=== PATIENT | male | born 1960 | race Caucasian/White ===

== ENCOUNTER 2017-07-16 16:18 | Inpatient (IN) | payer BC ==
[2017-07-16 17:09] LABS: ADD MAN DIFF? NO
[2017-07-16 17:11] LABS: WHITE BLOOD COUNT 11.8 10^3/ul (4.8-10.8)
[2017-07-16 17:11] LABS: BASOPHILS % 0.3 % (0.0-2.0); EOSINOPHILS # 0.1 10^3/ul (0.0-0.5); EOSINOPHILS % 0.7 % (0.0-7.0); HEMATOCRIT 45.4 % (42.0-52.0); HEMOGLOBIN 15.4 g/dl (14.0-18.0); LYMPHOCYTES # 1.5 10^3/ul (0.8-2.9); LYMPHOCYTES % 12.3 % (15.0-51.0); MEAN CORPUSCULAR HEMOGLOBIN 30.1 pg (29.0-33.0); MEAN CORPUSCULAR HGB CONC 33.9 g/dl (32.0-37.0); MEAN CORPUSCULAR VOLUME 88.7 fl (82.0-101.0); MEAN PLATELET VOLUME 10.2 fl (7.4-10.4); MONOCYTE # 0.6 10^3/ul (0.3-0.9); MONOCYTES % 5.1 % (0.0-11.0); NEUTROPHIL # 9.6 10^3/ul (1.6-7.5); NEUTROPHILS % 81.1 % (39.0-77.0); PLATELET COUNT 211 10^3/UL (140-415); RED BLOOD COUNT 5.12 10^6/ul (4.70-6.10); RED CELL DISTRIBUTION WIDTH 13.5 % (11.5-14.5)
[2017-07-16 17:34] LABS: ALANINE AMINOTRANSFERASE 27 IU/L (13-69); ALBUMIN 4.5 g/dl (3.3-4.9); ALBUMIN/GLOBULIN RATIO 1.66; ALKALINE PHOSPHATASE 50 IU/L (42-121); ANION GAP 21 (8-16); ASPARTATE AMINO TRANSFERASE 22 IU/L (15-46); BILIRUBIN,INDIRECT 1.9 mg/dl (0-1.1); BILIRUBIN,TOTAL 1.9 mg/dl (0.2-1.3); BLOOD UREA NITROGEN 27 mg/dl (7-20); CALCIUM 9.5 mg/dl (8.4-10.2); CARBON DIOXIDE 25 mmol/L (21-31); CHLORIDE 102 mmol/L (97-110); CREATININE 1.21 mg/dl (0.61-1.24); GLUCOSE 154 mg/dl (70-220); LIPASE 78 U/L (23-300); POTASSIUM 4.9 mmol/L (3.5-5.1); SODIUM 143 mmol/L (135-144); TOTAL PROTEIN 7.2 g/dl (6.1-8.1)
[2017-07-16 17:48] LABS: B-TYPE NATRIURETIC PEPTIDE 3540 PG/ML (0-125); TROPONIN-I 0.017 ng/ml (0.00-0.12)
[2017-07-16 18:30] LABS: INR 1.17; PARTIAL THROMBOPLASTIN TIME 26.3 Sec (25.0-35.0); PROTIME 15.1 Sec (11.9-14.9); PT RATIO 1.2
[2017-07-16] MEDS: FUROSEMIDE 40 MG INJ IV (18:41)
[2017-07-16] MEDS: SOTALOL 80 MG TAB PO (20:58)
[2017-07-16 21:33] LABS: ADD UMIC NO; UR ASCORBIC ACID 40 mg/dL (NEGATIVE); UR BILIRUBIN (Dip) NEGATIVE (NEGATIVE); UR BLOOD (Dip) NEGATIVE (NEGATIVE); UR CLARITY SLIGHTLY CLOUDY (CLEAR); UR COLOR AMBER (YELLOW); UR GLUCOSE (Dip) NEGATIVE (NEGATIVE); UR KETONES (Dip) NEGATIVE (NEGATIVE); UR LEUKOCYTE ESTERASE (Dip) NEGATIVE Leu/ul (NEGATIVE); UR NITRITE (Dip) NEGATIVE (NEGATIVE); UR RBC 4 /HPF (0-5); UR SPECIFIC GRAVITY (Dip) 1.018 (1.003-1.030); UR TOTAL PROTEIN (Dip) NEGATIVE (NEGATIVE); UR UROBILINOGEN (Dip) NEGATIVE (NEGATIVE); UR WBC 1 /HPF (0-5)
[2017-07-17] MEDS ORDERED: HYDROCODONE/APAP (5/325) TAB PO (00:30)
[2017-07-17] MEDS ORDERED: ONDANSETRON 4 MG INJ IV (00:30)
[2017-07-17] MEDS ORDERED: morphine 2 MG INJ IV (00:30)
[2017-07-17] MEDS ORDERED: DOCUSATE SODIUM 100 MG CAP PO (00:30)
[2017-07-17] MEDS ORDERED: NACL 0.9% 3 ML SYG IV (00:30)
[2017-07-17] MEDS ORDERED: ZOLPIDEM 5 MG TAB PO (00:30)
[2017-07-17] MEDS ORDERED: ACETAMINOPHEN 325 MG TAB PO (00:30)
[2017-07-17] MEDS ORDERED: AMIODARONE 150MG/D5W BOLUS 100 ML (02:47)
[2017-07-17] MEDS ORDERED: AMIODARONE 900 MG in DEXTROSE 5% 482 ML IV (03:00)
[2017-07-17] MEDS: AMIODARONE 150MG/D5W BOLUS 100 ML IV (03:18)
[2017-07-17 05:54] LABS: ADD MAN DIFF? NO
[2017-07-17 06:02] LABS: BASOPHIL # 0.1 10^3/ul (0.0-0.1); BASOPHILS % 0.5 % (0.0-2.0); EOSINOPHILS # 0.1 10^3/ul (0.0-0.5); EOSINOPHILS % 1.2 % (0.0-7.0); HEMATOCRIT 43.1 % (42.0-52.0); HEMOGLOBIN 14.6 g/dl (14.0-18.0); LYMPHOCYTES # 2.5 10^3/ul (0.8-2.9); LYMPHOCYTES % 24.9 % (15.0-51.0); MEAN CORPUSCULAR HEMOGLOBIN 29.7 pg (29.0-33.0); MEAN CORPUSCULAR HGB CONC 33.9 g/dl (32.0-37.0); MEAN CORPUSCULAR VOLUME 87.6 fl (82.0-101.0); MEAN PLATELET VOLUME 10.7 fl (7.4-10.4); MONOCYTE # 0.8 10^3/ul (0.3-0.9); MONOCYTES % 8.2 % (0.0-11.0); NEUTROPHIL # 6.5 10^3/ul (1.6-7.5); NEUTROPHILS % 64.8 % (39.0-77.0); PLATELET COUNT 203 10^3/UL (140-415); RED BLOOD COUNT 4.92 10^6/ul (4.70-6.10)
[2017-07-17 06:46] LABS: ANION GAP 20 (8-16); BLOOD UREA NITROGEN 26 mg/dl (7-20); CALCIUM 9.2 mg/dl (8.4-10.2); CARBON DIOXIDE 23 mmol/L (21-31); CHLORIDE 102 mmol/L (97-110); CHOL/HDL RATIO 4.7 RATIO; CHOLESTEROL 134 mg/dl (100-200); CREATININE 1.04 mg/dl (0.61-1.24); GLUCOSE 95 mg/dl (70-220); HDL CHOLESTEROL 28 mg/dl (28-71); LDL CHOLESTEROL,CALCULATED 87 mg/dl; PHOSPHORUS 3.5 mg/dl (2.5-4.9); POTASSIUM 4.2 mmol/L (3.5-5.1); SODIUM 141 mmol/L (135-144); TRIGLYCERIDES 96 mg/dl (0-149)
[2017-07-17 07:18] LABS: HEMOGLOBIN A1C 6.1 % (0-5.9)
[2017-07-17] MEDS ORDERED: SACUBITRIL/VALSARTAN (24mg-26mg) TABLET PO (09:00)
[2017-07-17] MEDS ORDERED: PATIENT'S OWN MEDICATION PO (09:00)
[2017-07-17] MEDS: SPIRONOLACTONE 25 MG TAB PO (09:00)
[2017-07-17] MEDS: AMIODARONE 200 MG TAB PO ×2 (09:22→21:00)
[2017-07-17] MEDS ORDERED: ASPIRIN 81 MG TAB (09:28)
[2017-07-17] MEDS: ENOXAPARIN 100 MG/ML SYG SC (09:35)
[2017-07-17] MEDS: ASPIRIN 81 MG TAB PO (10:18)
[2017-07-17] MEDS: SOTALOL 80 MG TAB PO (10:18)
[2017-07-17 12:28] LABS: CREATINE KINASE 100 IU/L (23-200)
[2017-07-17 12:40] LABS: CK INDEX 7.8
[2017-07-17 12:41] LABS: CK-MB 7.76 ng/ml (0.0-2.4)
[2017-07-17] MEDS: ATORVASTATIN 80 MG TAB PO (13:22)
[2017-07-17] MEDS: FUROSEMIDE 40 MG TAB PO (13:22)
[2017-07-17] MEDS ORDERED: MIDAZOLAM 1 MG/ML 2 ML INJ (15:57)
[2017-07-17] MEDS ORDERED: HEPARIN 1000 UNITS/ML 10 ML INJ (15:57)
[2017-07-17] MEDS ORDERED: HEPARIN 1000 UNITS/NS (A-LINE) 1,000 ML (15:57)
[2017-07-17] MEDS ORDERED: VERAPAMIL 5 MG INJ (15:58)
[2017-07-17] MEDS ORDERED: FENTAnyl 50 MCG/ML VIAL (15:58)
[2017-07-17] MEDS ORDERED: NITROGLYCERIN (IC) 100 MCG/ML INJ (15:58)
[2017-07-17] MEDS ORDERED: LIDOCAINE 2 GM/D5W 500 ML (16:14)
[2017-07-17] MEDS ORDERED: LIDOCAINE 2% (SDV) 5 ML INJ (16:14)
[2017-07-17] MEDS: LIDOCAINE 2 GM/D5W 500 ML IV (17:05)
[2017-07-18] MEDS: SOD CHLORIDE 0.9% 500 ML IV (02:00)
[2017-07-18 06:01] LABS: ADD MAN DIFF? NO
[2017-07-18 06:10] LABS: WHITE BLOOD COUNT 7.5 10^3/ul (4.8-10.8)
[2017-07-18 06:10] LABS: BASOPHIL # 0.1 10^3/ul (0.0-0.1); BASOPHILS % 0.7 % (0.0-2.0); EOSINOPHILS # 0.2 10^3/ul (0.0-0.5); EOSINOPHILS % 2.4 % (0.0-7.0); HEMATOCRIT 43.2 % (42.0-52.0); HEMOGLOBIN 14.8 g/dl (14.0-18.0); LYMPHOCYTES # 2.2 10^3/ul (0.8-2.9); LYMPHOCYTES % 28.8 % (15.0-51.0); MEAN CORPUSCULAR HEMOGLOBIN 30.3 pg (29.0-33.0); MEAN CORPUSCULAR HGB CONC 34.3 g/dl (32.0-37.0); MEAN CORPUSCULAR VOLUME 88.5 fl (82.0-101.0); MEAN PLATELET VOLUME 10.5 fl (7.4-10.4); MONOCYTE # 0.7 10^3/ul (0.3-0.9); MONOCYTES % 8.8 % (0.0-11.0); NEUTROPHIL # 4.4 10^3/ul (1.6-7.5); PLATELET COUNT 180 10^3/UL (140-415); RED BLOOD COUNT 4.88 10^6/ul (4.70-6.10); RED CELL DISTRIBUTION WIDTH 13.5 % (11.5-14.5)
[2017-07-18 06:28] LABS: ANION GAP 18 (8-16); BLOOD UREA NITROGEN 25 mg/dl (7-20); CALCIUM 8.9 mg/dl (8.4-10.2); CARBON DIOXIDE 26 mmol/L (21-31); CHLORIDE 101 mmol/L (97-110); CREATININE 1.24 mg/dl (0.61-1.24); GLUCOSE 83 mg/dl (70-220); POTASSIUM 4.3 mmol/L (3.5-5.1); SODIUM 141 mmol/L (135-144)
[2017-07-18 06:40] LABS: CK-MB 2.76 ng/ml (0.0-2.4)
[2017-07-18 07:17] LABS: CK INDEX 4.6
[2017-07-18 07:18] LABS: CREATINE KINASE 60 IU/L (23-200)
[2017-07-18] MEDS ORDERED: ASPIRIN 81 MG TAB PO (09:00)
[2017-07-18] MEDS: FUROSEMIDE 40 MG TAB PO (09:00)
[2017-07-18] MEDS ORDERED: SACUBITRIL/VALSARTAN (24mg-26mg) TABLET PO ×2 (09:00→21:00)
[2017-07-18] MEDS: SPIRONOLACTONE 25 MG TAB PO (09:00)
[2017-07-18] MEDS: AMIODARONE 200 MG TAB PO ×2 (11:01→21:36)
[2017-07-18] MEDS: ASPIRIN 81 MG TAB PO (11:02)
[2017-07-18] MEDS: ATORVASTATIN 80 MG TAB PO (11:02)
[2017-07-18] MEDS: SACUBITRIL/VALSARTAN (24mg-26mg) TABLET PO (17:58)
[2017-07-19 06:34] LABS: ADD MAN DIFF? NO
[2017-07-19 06:42] LABS: BASOPHILS % 0.5 % (0.0-2.0); EOSINOPHILS # 0.2 10^3/ul (0.0-0.5); EOSINOPHILS % 2.9 % (0.0-7.0); HEMATOCRIT 44.8 % (42.0-52.0); HEMOGLOBIN 15.1 g/dl (14.0-18.0); LYMPHOCYTES # 1.9 10^3/ul (0.8-2.9); LYMPHOCYTES % 24.6 % (15.0-51.0); MEAN CORPUSCULAR HEMOGLOBIN 29.8 pg (29.0-33.0); MEAN CORPUSCULAR HGB CONC 33.7 g/dl (32.0-37.0); MEAN CORPUSCULAR VOLUME 88.4 fl (82.0-101.0); MEAN PLATELET VOLUME 10.4 fl (7.4-10.4); MONOCYTE # 0.8 10^3/ul (0.3-0.9); MONOCYTES % 9.6 % (0.0-11.0); NEUTROPHIL # 4.9 10^3/ul (1.6-7.5); PLATELET COUNT 181 10^3/UL (140-415); RED BLOOD COUNT 5.07 10^6/ul (4.70-6.10); RED CELL DISTRIBUTION WIDTH 13.4 % (11.5-14.5)
[2017-07-19 06:42] LABS: WHITE BLOOD COUNT 7.9 10^3/ul (4.8-10.8)
[2017-07-19 07:07] LABS: ANION GAP 15 (8-16); BLOOD UREA NITROGEN 24 mg/dl (7-20); CALCIUM 9.3 mg/dl (8.4-10.2); CARBON DIOXIDE 28 mmol/L (21-31); CHLORIDE 101 mmol/L (97-110); CREATININE 1.11 mg/dl (0.61-1.24); GLUCOSE 108 mg/dl (70-220); POTASSIUM 4.5 mmol/L (3.5-5.1); SODIUM 139 mmol/L (135-144)
[2017-07-19 07:18] LABS: MAGNESIUM 2.1 mg/dl (1.7-2.5)
[2017-07-19] MEDS: ASPIRIN 81 MG TAB PO (08:40)
[2017-07-19] MEDS: SPIRONOLACTONE 25 MG TAB PO (08:41)
[2017-07-19] MEDS: ATORVASTATIN 80 MG TAB PO (08:41)
[2017-07-19] MEDS: FUROSEMIDE 40 MG TAB PO (08:41)
[2017-07-19] MEDS: AMIODARONE 200 MG TAB PO (08:42)
[2017-07-19] MEDS: SACUBITRIL/VALSARTAN (24mg-26mg) TABLET PO (09:35)
[2017-07-19] MEDS ORDERED: AMIODARONE 200 MG TAB PO (21:00)
== END 2017-07-19 17:30 | disposition home or self-care (01) | DRG 286 ==
LOC: ICU 07-17 02:15 → E/R 16:18 → TEL 07-18 23:51 → MS3 17:59
PROC: 4A023N7 Measurement of Cardiac Sampling and Pressure, Left Heart, Percutaneous Approach (ICD-10-PCS; principal; 2017-07-17 15:30)
PROC: B211YZZ Fluoroscopy of Multiple Coronary Arteries using Other Contrast (ICD-10-PCS; 2017-07-17 15:30)
PROC: B215YZZ Fluoroscopy of Left Heart using Other Contrast (ICD-10-PCS; 2017-07-17 15:30)
DX: R07.9 Chest pain, unspecified (principal); I50.43 Acute on chronic combined systolic (congestive) and diastolic (congestive) heart failure; I49.01 Ventricular fibrillation; I47.2 Ventricular tachycardia; I42.8 Other cardiomyopathies; I25.10 Atherosclerotic heart disease of native coronary artery without angina pectoris; I11.0 Hypertensive heart disease with heart failure; I95.2 Hypotension due to drugs; T46.2X5A Adverse effect of other antidysrhythmic drugs, initial encounter; D72.829 Elevated white blood cell count, unspecified; R74.8 Abnormal levels of other serum enzymes; Z95.810 Presence of automatic (implantable) cardiac defibrillator; Y92.230 Patient room in hospital as the place of occurrence of the external cause
CPT/HCPCS: 36415; 71045; 78582; 80048; 80053; 80061; 81001; 81003; 82550; 82553; 83036; 83690; 83735; 83880; 84100; 84484; 85025; 85610; 85730; 87081; 93005; 93306; 93458; 99285-25; J2001

== ENCOUNTER 2018-02-26 18:44 | Inpatient (IN) | payer BC ==
[2018-02-26 19:19] LABS: ADD MAN DIFF? NO
[2018-02-26 19:25] LABS: WHITE BLOOD COUNT 12.7 10^3/ul (4.8-10.8)
[2018-02-26 19:25] LABS: BASOPHILS % 0.3 % (0.0-2.0); EOSINOPHILS # 0.1 10^3/ul (0.0-0.5); EOSINOPHILS % 0.9 % (0.0-7.0); HEMATOCRIT 42.8 % (42.0-52.0); HEMOGLOBIN 14.2 g/dl (14.0-18.0); LYMPHOCYTES # 1.3 10^3/ul (0.8-2.9); LYMPHOCYTES % 10.1 % (15.0-51.0); MEAN CORPUSCULAR HEMOGLOBIN 29.3 pg (29.0-33.0); MEAN CORPUSCULAR HGB CONC 33.2 g/dl (32.0-37.0); MEAN CORPUSCULAR VOLUME 88.2 fl (82.0-101.0); MEAN PLATELET VOLUME 10.5 fl (7.4-10.4); MONOCYTE # 0.8 10^3/ul (0.3-0.9); MONOCYTES % 6.2 % (0.0-11.0); NEUTROPHIL # 10.4 10^3/ul (1.6-7.5); NEUTROPHILS % 81.9 % (39.0-77.0); PLATELET COUNT 233 10^3/UL (140-415); RED BLOOD COUNT 4.85 10^6/ul (4.70-6.10); RED CELL DISTRIBUTION WIDTH 13.3 % (11.5-14.5)
[2018-02-26 19:44] LABS: MAGNESIUM 1.8 mg/dl (1.7-2.5)
[2018-02-26 19:46] LABS: ALANINE AMINOTRANSFERASE 23 IU/L (13-69); ALBUMIN 4.6 g/dl (3.3-4.9); ALKALINE PHOSPHATASE 57 IU/L (42-121); ANION GAP 15 (5-13); ASPARTATE AMINO TRANSFERASE 29 IU/L (15-46); BILIRUBIN,INDIRECT 1.6 mg/dl (0-1.1); BILIRUBIN,TOTAL 1.6 mg/dl (0.2-1.3); BLOOD UREA NITROGEN 23 mg/dl (7-20); CALCIUM 9.6 mg/dl (8.4-10.2); CARBON DIOXIDE 25 mmol/L (21-31); CHLORIDE 102 mmol/L (97-110); CREATININE 1.33 mg/dl (0.61-1.24); Estimated GFR 55 mL/min (>60); GLUCOSE 185 mg/dl (70-220); POTASSIUM 4.9 mmol/L (3.5-5.1); SODIUM 142 mmol/L (135-144); TOTAL PROTEIN 7.3 g/dl (6.1-8.1)
[2018-02-26 19:47] LABS: INR 1.16; PARTIAL THROMBOPLASTIN TIME 24.7 Sec (23.0-35.0); PT RATIO 1.2
[2018-02-26 19:56] LABS: B-TYPE NATRIURETIC PEPTIDE 3590 PG/ML (0-125); TROPONIN-I 0.015 ng/ml (0.000-0.120)
[2018-02-26] MEDS: IODIXANOL LOCM 50 ML BTL (20:36)
[2018-02-26] MEDS: IODIXANOL LOCM 100 ML BTL (20:36)
[2018-02-26] MEDS: SOD CHLORIDE 0.9% 100 ML (20:37)
[2018-02-26] MEDS: DIPHTH/TET/ACEL PERTUSS (ADULT) 0.5 ML VIAL IM* (20:59)
[2018-02-26] MEDS: ONDANSETRON (ODT) 4 MG TAB ODT (22:01)
[2018-02-26] MEDS: HYDROCODONE/APAP (5/325) TAB PO (22:01)
[2018-02-26] MEDS ORDERED: NITROGLYCERIN (SL) 0.4 MG TAB SL (23:30)
[2018-02-26] MEDS ORDERED: NACL 0.9% 3 ML SYG IV (23:30)
[2018-02-26] MEDS ORDERED: ALBUTEROL/IPRATROPIUM (NEB) 3 ML AMP HHN (23:30)
[2018-02-26] MEDS ORDERED: ONDANSETRON 4 MG INJ IV (23:30)
[2018-02-27 00:33] LABS: CREATINE KINASE 39 IU/L (23-200)
[2018-02-27 00:47] LABS: CK INDEX 2.9; CK-MB 1.13 ng/ml (0.0-2.4); TROPONIN-I < 0.012 ng/ml (0.000-0.120)
[2018-02-27] MEDS: ACETAMINOPHEN 325 MG TAB PO (03:20)
[2018-02-27] MEDS: HYDROCODONE/APAP (5/325) TAB PO ×5 (04:35→21:34)
[2018-02-27 05:35] LABS: AMPHETAMINE/METHAMPHETAMINE Negative (NEGATIVE); BARBITURATES Negative (NEGATIVE); BENZODIAZEPINES Negative (NEGATIVE); CANNABINOIDS Negative (NEGATIVE); COCAINE Negative (NEGATIVE); OPIATES Positive (NEGATIVE)
[2018-02-27] MEDS: LEVOTHYROXINE 88 MCG TAB PO (06:24)
[2018-02-27 07:16] LABS: ADD MAN DIFF? NO
[2018-02-27 07:27] LABS: BASOPHILS % 0.2 % (0.0-2.0); EOSINOPHILS % 0.1 % (0.0-7.0); HEMATOCRIT 39.8 % (42.0-52.0); HEMOGLOBIN 13.5 g/dl (14.0-18.0); LYMPHOCYTES # 0.8 10^3/ul (0.8-2.9); LYMPHOCYTES % 6.2 % (15.0-51.0); MEAN CORPUSCULAR HEMOGLOBIN 29.7 pg (29.0-33.0); MEAN CORPUSCULAR HGB CONC 33.9 g/dl (32.0-37.0); MEAN CORPUSCULAR VOLUME 87.5 fl (82.0-101.0); MEAN PLATELET VOLUME 10.6 fl (7.4-10.4); MONOCYTE # 1.1 10^3/ul (0.3-0.9); MONOCYTES % 8.7 % (0.0-11.0); NEUTROPHIL # 10.9 10^3/ul (1.6-7.5); NEUTROPHILS % 84.2 % (39.0-77.0); PLATELET COUNT 197 10^3/UL (140-415); RED BLOOD COUNT 4.55 10^6/ul (4.70-6.10); RED CELL DISTRIBUTION WIDTH 13.5 % (11.5-14.5)
[2018-02-27 07:41] LABS: CREATINE KINASE 32 IU/L (23-200)
[2018-02-27 07:43] LABS: ALANINE AMINOTRANSFERASE 26 IU/L (13-69); ALBUMIN 4.2 g/dl (3.3-4.9); ALBUMIN/GLOBULIN RATIO 2.21; ALKALINE PHOSPHATASE 45 IU/L (42-121); ANION GAP 11 (5-13); ASPARTATE AMINO TRANSFERASE 19 IU/L (15-46); BILIRUBIN,INDIRECT 2.3 mg/dl (0-1.1); BILIRUBIN,TOTAL 2.3 mg/dl (0.2-1.3); BLOOD UREA NITROGEN 24 mg/dl (7-20); CALCIUM 9.2 mg/dl (8.4-10.2); CARBON DIOXIDE 27 mmol/L (21-31); CHLORIDE 100 mmol/L (97-110); CHOL/HDL RATIO 4.6 RATIO; CHOLESTEROL 166 mg/dl (100-200); CREATININE 1.13 mg/dl (0.61-1.24); Estimated GFR > 60 mL/min (>60); GLUCOSE 141 mg/dl (70-220); HDL CHOLESTEROL 36 mg/dl (30-78); LDL CHOLESTEROL,CALCULATED 108 mg/dl; POTASSIUM 4.9 mmol/L (3.5-5.1); SODIUM 138 mmol/L (135-144); TOTAL PROTEIN 6.1 g/dl (6.1-8.1); TRIGLYCERIDES 110 mg/dl (0-149)
[2018-02-27 07:54] LABS: CK INDEX 2.5; TROPONIN-I 0.015 ng/ml (0.000-0.120)
[2018-02-27 07:58] LABS: ETHANOL < 10.0 mg/dl (0-0)
[2018-02-27] MEDS ORDERED: HEPARIN 5,000 UNIT/0.5 ML VIAL (08:39)
[2018-02-27] MEDS ORDERED: DOFETILIDE 250 MCG CAPSULE PO ×2 (09:00→21:00)
[2018-02-27] MEDS: MULTIVITAMINS THERAPEUTIC TAB PO (09:01)
[2018-02-27] MEDS: ASPIRIN 81 MG TAB PO (09:01)
[2018-02-27] MEDS: FUROSEMIDE 40 MG TAB PO (09:01)
[2018-02-27] MEDS: FOLIC ACID 1 MG TAB PO (09:03)
[2018-02-27] MEDS: THIAMINE 100 MG TAB PO (09:03)
[2018-02-27] MEDS: HEPARIN 5,000 UNIT/1 ML VIAL SC (09:11)
[2018-02-27] MEDS: DICLOFENAC SODIUM 1% GEL 100 GM TUBE TP ×3 (12:55→21:33)
[2018-02-27] MEDS: CHLORHEXIDINE GLUCONATE 15 ML UD CUP MT ×2 (12:55→21:33)
[2018-02-28] MEDS: HYDROCODONE/APAP (5/325) TAB PO ×5 (02:21→22:40)
[2018-02-28] MEDS: LEVOTHYROXINE 88 MCG TAB PO (06:34)
[2018-02-28] MEDS: MAGNESIUM HYDROXIDE 30ML CUP PO (06:35)
[2018-02-28 07:50] LABS: ADD MAN DIFF? NO
[2018-02-28 07:55] LABS: BASOPHILS % 0.4 % (0.0-2.0); EOSINOPHILS # 0.1 10^3/ul (0.0-0.5); EOSINOPHILS % 1.3 % (0.0-7.0); HEMATOCRIT 39.1 % (42.0-52.0); HEMOGLOBIN 13.1 g/dl (14.0-18.0); LYMPHOCYTES # 1.8 10^3/ul (0.8-2.9); LYMPHOCYTES % 19.4 % (15.0-51.0); MEAN CORPUSCULAR HEMOGLOBIN 29.7 pg (29.0-33.0); MEAN CORPUSCULAR HGB CONC 33.5 g/dl (32.0-37.0); MEAN CORPUSCULAR VOLUME 88.7 fl (82.0-101.0); MEAN PLATELET VOLUME 10.5 fl (7.4-10.4); MONOCYTE # 0.9 10^3/ul (0.3-0.9); MONOCYTES % 9.4 % (0.0-11.0); NEUTROPHIL # 6.2 10^3/ul (1.6-7.5); NEUTROPHILS % 69.1 % (39.0-77.0); PLATELET COUNT 183 10^3/UL (140-415); RED BLOOD COUNT 4.41 10^6/ul (4.70-6.10); RED CELL DISTRIBUTION WIDTH 13.5 % (11.5-14.5)
[2018-02-28 08:35] LABS: ANION GAP 10 (5-13); BLOOD UREA NITROGEN 27 mg/dl (7-20); CALCIUM 9.4 mg/dl (8.4-10.2); CARBON DIOXIDE 28 mmol/L (21-31); CHLORIDE 99 mmol/L (97-110); CREATININE 1.18 mg/dl (0.61-1.24); Estimated GFR > 60 mL/min (>60); GLUCOSE 121 mg/dl (70-220); POTASSIUM 4.7 mmol/L (3.5-5.1); SODIUM 137 mmol/L (135-144)
[2018-02-28] MEDS: CHLORHEXIDINE GLUCONATE 15 ML UD CUP MT ×2 (09:30→20:50)
[2018-02-28] MEDS: FUROSEMIDE 40 MG TAB PO (09:31)
[2018-02-28] MEDS: MULTIVITAMINS THERAPEUTIC TAB PO (09:32)
[2018-02-28] MEDS: ASPIRIN 81 MG TAB PO (09:32)
[2018-02-28] MEDS: SACUBITRIL/VALSARTAN (24mg-26mg) TABLET PO ×2 (09:32→20:52)
[2018-02-28] MEDS: THIAMINE 100 MG TAB PO (09:32)
[2018-02-28] MEDS: ENOXAPARIN 40 MG/0.4 ML SYG SC (09:48)
[2018-02-28] MEDS: FOLIC ACID 1 MG TAB PO (10:12)
[2018-02-28] MEDS: DICLOFENAC SODIUM 1% GEL 100 GM TUBE TP ×4 (10:13→20:53)
[2018-02-28] MEDS: DOCUSATE SODIUM 250 MG CAP PO (14:11)
[2018-02-28] MEDS: DOFETILIDE 250 MG PO (20:51)
[2018-02-28] MEDS ORDERED: DOFETILIDE 250 MCG CAPSULE PO (21:00)
[2018-03-01 06:25] LABS: ADD MAN DIFF? NO
[2018-03-01 06:29] LABS: BASOPHIL # 0.1 10^3/ul (0.0-0.1); BASOPHILS % 0.7 % (0.0-2.0); EOSINOPHILS # 0.2 10^3/ul (0.0-0.5); EOSINOPHILS % 2.3 % (0.0-7.0); HEMATOCRIT 38.8 % (42.0-52.0); LYMPHOCYTES # 1.8 10^3/ul (0.8-2.9); LYMPHOCYTES % 20.5 % (15.0-51.0); MEAN CORPUSCULAR HEMOGLOBIN 29.4 pg (29.0-33.0); MEAN CORPUSCULAR HGB CONC 33.5 g/dl (32.0-37.0); MEAN CORPUSCULAR VOLUME 87.8 fl (82.0-101.0); MEAN PLATELET VOLUME 10.1 fl (7.4-10.4); MONOCYTE # 0.8 10^3/ul (0.3-0.9); MONOCYTES % 9.1 % (0.0-11.0); NEUTROPHIL # 5.7 10^3/ul (1.6-7.5); NEUTROPHILS % 66.9 % (39.0-77.0); PLATELET COUNT 175 10^3/UL (140-415); RED BLOOD COUNT 4.42 10^6/ul (4.70-6.10); RED CELL DISTRIBUTION WIDTH 13.2 % (11.5-14.5)
[2018-03-01 06:29] LABS: WHITE BLOOD COUNT 8.5 10^3/ul (4.8-10.8)
[2018-03-01] MEDS: LEVOTHYROXINE 88 MCG TAB PO (06:33)
[2018-03-01] MEDS: HYDROCODONE/APAP (5/325) TAB PO ×4 (06:34→20:58)
[2018-03-01 07:10] LABS: ANION GAP 9 (5-13); BLOOD UREA NITROGEN 26 mg/dl (7-20); CALCIUM 9.1 mg/dl (8.4-10.2); CARBON DIOXIDE 29 mmol/L (21-31); CHLORIDE 97 mmol/L (97-110); CREATININE 0.97 mg/dl (0.61-1.24); Estimated GFR > 60 mL/min (>60); GLUCOSE 108 mg/dl (70-220); POTASSIUM 4.5 mmol/L (3.5-5.1); SODIUM 135 mmol/L (135-144)
[2018-03-01] MEDS: FUROSEMIDE 40 MG TAB PO (09:00)
[2018-03-01] MEDS: CHLORHEXIDINE GLUCONATE 15 ML UD CUP MT ×2 (09:05→20:57)
[2018-03-01] MEDS: MULTIVITAMINS THERAPEUTIC TAB PO (09:05)
[2018-03-01] MEDS: THIAMINE 100 MG TAB PO (09:07)
[2018-03-01] MEDS: ASPIRIN 81 MG TAB PO (09:07)
[2018-03-01] MEDS: DOCUSATE SODIUM 250 MG CAP PO (09:07)
[2018-03-01] MEDS: FOLIC ACID 1 MG TAB PO (09:07)
[2018-03-01] MEDS: DOFETILIDE 250 MG PO ×2 (09:08→20:59)
[2018-03-01] MEDS: SACUBITRIL/VALSARTAN (24mg-26mg) TABLET PO ×2 (09:08→20:58)
[2018-03-01] MEDS: DICLOFENAC SODIUM 1% GEL 100 GM TUBE TP ×4 (09:11→20:59)
[2018-03-01] MEDS: ENOXAPARIN 40 MG/0.4 ML SYG SC (09:26)
[2018-03-02] MEDS: LEVOTHYROXINE 88 MCG TAB PO (06:30)
[2018-03-02] MEDS: HYDROCODONE/APAP (5/325) TAB PO ×4 (06:30→19:24)
[2018-03-02 07:43] LABS: ANION GAP 11 (5-13); BLOOD UREA NITROGEN 26 mg/dl (7-20); CALCIUM 8.8 mg/dl (8.4-10.2); CARBON DIOXIDE 26 mmol/L (21-31); CHLORIDE 99 mmol/L (97-110); CREATININE 0.95 mg/dl (0.61-1.24); Estimated GFR > 60 mL/min (>60); GLUCOSE 102 mg/dl (70-220); POTASSIUM 4.5 mmol/L (3.5-5.1); SODIUM 136 mmol/L (135-144)
[2018-03-02] MEDS: ASPIRIN 81 MG TAB PO (08:59)
[2018-03-02] MEDS: THIAMINE 100 MG TAB PO (08:59)
[2018-03-02] MEDS: MULTIVITAMINS THERAPEUTIC TAB PO (08:59)
[2018-03-02] MEDS: DOCUSATE SODIUM 250 MG CAP PO (08:59)
[2018-03-02] MEDS: FOLIC ACID 1 MG TAB PO (08:59)
[2018-03-02] MEDS: SACUBITRIL/VALSARTAN (24mg-26mg) TABLET PO ×2 (08:59→20:17)
[2018-03-02] MEDS: DOFETILIDE 250 MG PO ×2 (09:00→20:17)
[2018-03-02] MEDS: FUROSEMIDE 40 MG TAB PO (09:00)
[2018-03-02] MEDS: CHLORHEXIDINE GLUCONATE 15 ML UD CUP MT ×2 (09:06→20:17)
[2018-03-02] MEDS: ENOXAPARIN 40 MG/0.4 ML SYG SC (09:06)
[2018-03-02] MEDS: DICLOFENAC SODIUM 1% GEL 100 GM TUBE TP ×4 (09:06→20:17)
[2018-03-02 09:56] LABS: ALANINE AMINOTRANSFERASE 26 IU/L (13-69); ALKALINE PHOSPHATASE 46 IU/L (42-121); ASPARTATE AMINO TRANSFERASE 22 IU/L (15-46); BILIRUBIN,INDIRECT 1.2 mg/dl (0-1.1); BILIRUBIN,TOTAL 1.2 mg/dl (0.2-1.3); TOTAL PROTEIN 5.9 g/dl (6.1-8.1)
[2018-03-03] MEDS: LEVOTHYROXINE 88 MCG TAB PO (05:33)
[2018-03-03] MEDS: HYDROCODONE/APAP (5/325) TAB PO ×3 (05:35→15:47)
[2018-03-03 07:47] LABS: MAGNESIUM 2.2 mg/dl (1.7-2.5)
[2018-03-03 07:51] LABS: ANION GAP 8 (5-13); BLOOD UREA NITROGEN 22 mg/dl (7-20); CALCIUM 8.8 mg/dl (8.4-10.2); CARBON DIOXIDE 29 mmol/L (21-31); CHLORIDE 99 mmol/L (97-110); CREATININE 1.05 mg/dl (0.61-1.24); Estimated GFR > 60 mL/min (>60); GLUCOSE 109 mg/dl (70-220); POTASSIUM 4.7 mmol/L (3.5-5.1); SODIUM 136 mmol/L (135-144)
[2018-03-03] MEDS: ASPIRIN 81 MG TAB PO (08:39)
[2018-03-03] MEDS: MULTIVITAMINS THERAPEUTIC TAB PO (08:39)
[2018-03-03] MEDS: DOCUSATE SODIUM 250 MG CAP PO (08:39)
[2018-03-03] MEDS: SACUBITRIL/VALSARTAN (24mg-26mg) TABLET PO (08:39)
[2018-03-03] MEDS: THIAMINE 100 MG TAB PO (08:39)
[2018-03-03] MEDS: FOLIC ACID 1 MG TAB PO (08:39)
[2018-03-03] MEDS: FUROSEMIDE 40 MG TAB PO (08:41)
[2018-03-03] MEDS: DICLOFENAC SODIUM 1% GEL 100 GM TUBE TP ×3 (08:42→17:00)
[2018-03-03] MEDS: DOFETILIDE 250 MG PO (08:42)
[2018-03-03] MEDS: CHLORHEXIDINE GLUCONATE 15 ML UD CUP MT (08:43)
[2018-03-03] MEDS: ENOXAPARIN 40 MG/0.4 ML SYG SC (08:58)
== END 2018-03-03 19:49 | disposition home or self-care (01) | DRG 309 ==
LOC: E/R 18:44 → TEL 21:54
PROC: 4B02XTZ Measurement of Cardiac Defibrillator, External Approach (ICD-10-PCS; principal; 2018-02-27)
DX: I49.01 Ventricular fibrillation (principal); N17.9 Acute kidney failure, unspecified; I50.42 Chronic combined systolic (congestive) and diastolic (congestive) heart failure; I49.9 Cardiac arrhythmia, unspecified; I42.9 Cardiomyopathy, unspecified; I47.2 Ventricular tachycardia; I11.0 Hypertensive heart disease with heart failure; I27.29 Other secondary pulmonary hypertension; I50.84 End stage heart failure; I50.812 Chronic right heart failure; R55 Syncope and collapse; E03.9 Hypothyroidism, unspecified; I25.10 Atherosclerotic heart disease of native coronary artery without angina pectoris; I25.2 Old myocardial infarction; Z79.82 Long term (current) use of aspirin; Z95.810 Presence of automatic (implantable) cardiac defibrillator
CPT/HCPCS: 36415; 70450; 70486; 71045; 71275; 72125; 80048; 80053; 80061; 80076; 80307; 82550; 82553; 82962; 83735; 83880; 84443; 84484; 85025; 85378; 85610; 85730; 90471; 90715; 92610; 93005; 93306; 93880; 97161; 99285-25; G0378